=== PATIENT | male | born 1990 | race Caucasian/White ===

== ENCOUNTER 2016-08-17 08:01 | Emergency (ER) | payer OTHER ==
[~2016-08-17 08:01] MED LIST: NS IRRIGATION 1000 ML 1,000 ML ONE; XYLOCAINE 1 % (PLAIN) ONE
[2016-08-17 08:09] VITALS: BP 140/83; BMI 24.3
[2016-08-17] MEDS ORDERED: XYLOCAINE 1 % (PLAIN) IM ONE (08:10)
[2016-08-17] MEDS ORDERED: BETADINE SOLN TOP ONE (08:10)
--- NOTE | 2016-08-17 08:29 | RAD ---
HISTORY: Laceration Study: Three views left hand Comparison: None available Findings: No acute cortical disruption or dislocation is identified. The soft tissues appear unremarkable. T he carpal bones appear aligned without evidence for fracture. IMPRESSION: 1. Negative exam. Reported By:
[2016-08-17] MEDS ORDERED: BACITRACIN ZINC ONE ×2 (08:43→09:03)
[2016-08-17] MEDS ORDERED: HYDROGEN PEROXIDE 3% ONE (08:57)
--- NOTE | 2016-08-17 09:00 | DR.F ---
HPI - Time Seen Time seen: 08:05 - PCP Primary Care Physician: nfd - Complaint Chief Complaint:: PT C/O LACERATION LT 3RD DIGIT FROM A SAW. PT STATES HIS HAND SLIPPED AND CUTT HIS HAND. NOTED ABRASION TO 2ND DIGIT AND LACERATION TO 3RD DIGIT Self Treatment fo Chief Complaint: Patient cut 3rd digit of left with a saw just prior to being seen. Non job relatedl. Pain 5/10 sharp. Aggravated by movement - Source History Provided: Patient - Mode of Arrival Mode of Arrival: Ambulatory - Timing Onset of Chief Complaint: 08/17/16 PMH - PMH Past Medical History: No Past Surgical History: Yes Past Surgical History Comment: MOUTH - Family History History of Family Medical Conditions: No - Social History Does patient currently use any type of tobacco product: Yes Have you used tobacco products in the last 12 months: Yes Type of Tobacco Use: Cigarettes Does any household member use tobacco: Yes Alcohol Use: None Do you use any recreational Drugs:: No Lives With: Family Lives Where: Home - infectious screening In the last 2 months have you had wt loss of >10#?: NO Have you had fever, night sweats or hemotysis?: No Have you traveled outside the country in the last 6 months?: No Isolation: Standard ROS - Review of Systems Constitutional: No Symptoms Reported Eyes: No Symptoms Reported ENTM: No Symptoms Reported Respiratoy: No Symptoms Reported Cardiovascular: No Symptoms Reported Gastrointestinal/Abdominal: No Symptoms Reported, See HPI, Abdominal Pain Neurological: No Symptoms Reported Musculoskeletal: Hand (3rd digit of left hand) Integumentary: Lesions (superficial laceration of 3rd of left hand) Hematologic/Lymphatic: No Symptoms Reported Endocrine: No Symptoms Reported Psychiatric: No Symptoms Reported All Other Systems: Reviewed and Negative PE - Vital Signs Vitals: Temperature 98.2 F Pulse Rate 86 Respiratory Rate 18 Blood Pressure 140/83 O2 Sat by Pulse Oximetry 97 - General Limitations: No Limitations General Appearance: Alert, In No Apparent Distress - Head Head Exam: Normal Inspection, Atraumatic - Eyes Eye exam: Normal Appearance, PERRL, EOMI - ENT ENT Exam: Normal Exam, Normal Oropharynx - Neck Neck Exam: Normal Inspection - Chest Chest Inspection: Normal Inspection - Respiratory Respiratory Exam: Normal Lung Sounds Bilat Respiratory Exam: Bilateral Clear to Auscultation - Cardiovascular Cardiovascular Exam: Regular Rate, Normal Rhythm - Abdominal Exam Abdominal Exam: Normal Inspection, Normal Bowel Sounds Abdominal Tenderness: negative: RUQ, RLQ, LUQ, LLQ, Epigastrium, Suprapubic, Diffuse, Mild, Moderate, Severe, Other - Extremities Extremities Exam: Full ROM, Normal Capillary Refill - Upper Extremities Shoulder Exam: Normal Inspection, Full ROM Arm Exam: Normal Inspection Elbow Exam: Normal Inspection Forearm Exam: Normal Inspection Hand Exam: Normal Inspection Neuromotor Exam: Normal Exam Neurosensory Exam: Normal Exam Hand Tendon Exam: Flexor Digitorium Profundus (Location), Extensor Tendon ( Location) Upper Ext. Vascular Exam: Capillary Refill - Back Back Exam: Normal Inspection, Full ROM - Neurologic Neurological Exam: Alert, Oriented X3, CN II-XII Intact - Psychiatric Psychiatric Exam: Normal Affect - Skin Skin Exam: Warm, Dry Type of Lesion: Abrasion (4th digit of left hand medially) ROR - XRAY XRAY Interpreted by: Radiologist (No fracture or dislocation or foreign body) Procedures - Laceration/Wound Repair Left 3rd Digit Wound Length (cm): 2 Wound's Depth, Shape: Irregular, Flap Betadine Prep?: Yes Anesthesia: 1% Lidocaine Wound Repaired With: sutures Suture Size/Type: 4:0, Other (monosof) - Diagnosis Discharge Problem: Finger laceration Qualifiers: Encounter type: initial encounter Qualified Code(s): S61.219A - Laceration without foreign body of unspecified finger without damage to nail, initial encounter - Discharge Plan Condition: Stable - Follow ups/Referrals Follow ups/Referrals: NFD,None [Primary Care Provider] - 3 days - Instructions
== END 2016-08-17 09:16 | disposition home or self-care (01) ==
LOC: ER 08:01
PROC: 0XQT0ZZ Repair Left Ring Finger, Open Approach (ICD-10-PCS; principal; 2016-08-17)
DX: S61.219A Laceration without foreign body of unspecified finger without damage to nail, initial encounter (principal); W27.0XXA Contact with workbench tool, initial encounter; Y92.9 Unspecified place or not applicable
CPT/HCPCS: 12001; 73130; 96372; 99282; J2001